=== PATIENT | female | born 1965 | race Caucasian/White ===

== ENCOUNTER 2022-04-30 15:44 | Day surgery (SDC) | payer MEDICARE ==
[2022-04-30] MEDS ORDERED: XYLOCAINE-MPF 1% 5ML SDV IJ ONE (15:45)
[2022-04-30] MEDS ORDERED: Marcaine Mpf 0.5% Vial 30 Ml IJ ONE (15:45)
[2022-04-30] MEDS ORDERED: Depo-Medrol 40 MG/ML IM ONE (15:45)
--- NOTE | 2022-05-01 07:39 | XRAY ---
Indication: Bilateral L4-S1 MBB. Intraoperative fluoroscopy provided for 17 seconds. Single digital spot image submitted for interpretation demonstrates posterior needle tips projecting over the expected left and right L4-S1 nerve roots. Correlate with intraoperative findings/report. Incidental L3/L4 kyphoplasty.
--- NOTE | 2022-05-01 22:06 | XRAY ---
17 seconds of fluoroscopy was used in surgery for a bilateral L4-S1 MBB.
== END 2022-04-30 18:10 | disposition home or self-care (01) ==
LOC: SDC-PAIN 15:44
PROVIDERS: ATTEND Psychiatry & Neurology Pain Medicine
DX: M47.816 Spondylosis without myelopathy or radiculopathy, lumbar region (principal); Z79.899 Other long term (current) drug therapy
CPT/HCPCS: 64493; 64494; 72020; 77002; J1030

== ENCOUNTER 2022-05-14 08:17 | Day surgery (SDC) | payer MEDICARE ==
[2022-05-14] MEDS ORDERED: LIDOCAINE HCL 1% 50 MG/5 ML VL PF IJ ONE (08:18)
[2022-05-14] MEDS ORDERED: Depo-Medrol 40 MG/ML IM ONE (08:18)
[2022-05-14] MEDS ORDERED: BUPIVACAINE 0.5% VIAL IJ ONE (08:18)
--- NOTE | 2022-05-14 12:11 | XRAY ---
Indication: Bilateral L4-S1 MBB. Intraoperative fluoroscopy provided for 23 seconds. Single digital spot image submitted for interpretation demonstrates posterior needle tips projecting over the expected left and right L4-S1 nerve roots. Correlate with intraoperative findings/report. Incidental L3/L4 kyphoplasty.
--- NOTE | 2022-05-14 12:25 | XRAY ---
23 seconds of fluoroscopy was used in surgery for a bilateral L4-S1 MBB.
== END 2022-05-14 09:52 | disposition home or self-care (01) ==
LOC: SDC-PAIN 08:17
PROVIDERS: ATTEND Psychiatry & Neurology Pain Medicine
DX: M47.816 Spondylosis without myelopathy or radiculopathy, lumbar region (principal); Z79.899 Other long term (current) drug therapy
CPT/HCPCS: 64493; 64494; 72020; 77002; J1030; J2001

== ENCOUNTER 2022-07-02 15:53 | Day surgery (SDC) | payer MEDICARE ==
[2022-07-02] MEDS ORDERED: Depo-Medrol 40 MG/ML IM ONE (15:54)
[2022-07-02] MEDS ORDERED: Xylocaine 1% Vial 30 ML PF IJ ONE (15:54)
[2022-07-02] MEDS ORDERED: BUPIVACAINE 0.5% VIAL IJ ONE (15:54)
--- NOTE | 2022-07-02 19:38 | XRAY ---
Indication: Right L4-S1 RFA. Intraoperative fluoroscopy provided for 24 seconds. 4 digital spot submitted for interpretation demonstrates posterior needle tips projecting over the expected right L4-S1 nerve roots. Correlate with intraoperative findings/report.
--- NOTE | 2022-07-03 19:54 | XRAY ---
24 seconds of fluoroscopy was used in surgery for right L4-S1 RFA.
== END 2022-07-02 19:10 | disposition home or self-care (01) ==
LOC: SDC-PAIN 15:53
PROVIDERS: ATTEND Psychiatry & Neurology Pain Medicine
DX: M47.816 Spondylosis without myelopathy or radiculopathy, lumbar region (principal); Z79.899 Other long term (current) drug therapy
CPT/HCPCS: 64635; 64636; 72100; 77002; J1030; J2001

== ENCOUNTER 2022-07-09 16:06 | Day surgery (SDC) | payer MEDICARE ==
[2022-07-09] MEDS ORDERED: XYLOCAINE-MPF 1% 5ML SDV IJ ONE (16:07)
[2022-07-09] MEDS ORDERED: BUPIVACAINE 0.5% VIAL IJ ONE (16:07)
[2022-07-09] MEDS ORDERED: Depo-Medrol 40 MG/ML IM ONE (16:07)
[2022-07-09] MEDS ORDERED: Lactated Ringers 1,000 ML IV ONE (18:37)
--- NOTE | 2022-07-09 20:22 | XRAY ---
Indication: Left L4-S1 RFA. Intraoperative fluoroscopy provided for 31 seconds. 3 digital spot images submitted for interpretation demonstrates posterior needle tips projecting over the expected left L4-S1 nerve roots. Correlate with intraoperative findings/report. Incidental L3/L4 kyphoplasty.
--- NOTE | 2022-07-10 09:13 | XRAY ---
31 seconds of fluoroscopy was used in surgery for a left L4-S1 RFA.
== END 2022-07-09 18:45 | disposition home or self-care (01) ==
LOC: SDC-PAIN 16:06
PROVIDERS: ATTEND Psychiatry & Neurology Pain Medicine
DX: M47.816 Spondylosis without myelopathy or radiculopathy, lumbar region (principal); Z79.899 Other long term (current) drug therapy
CPT/HCPCS: 64635; 64636; 72100; 77002; J1030

== ENCOUNTER 2023-05-20 16:13 | Day surgery (SDC) | payer MEDICARE ==
[2023-05-20] MEDS ORDERED: LIDOCAINE HCL 1% 50 MG/5 ML VL PF IJ ONE (16:14)
[2023-05-20] MEDS ORDERED: Depo-Medrol 40 MG/ML IM ONE (16:14)
[2023-05-20] MEDS ORDERED: BUPIVACAINE 0.5% VIAL IJ ONE (16:14)
--- NOTE | 2023-05-20 20:47 | XRAY ---
Indication: Right hip and right greater trochanter bursa injection. Intraoperative fluoroscopy provided for 48 seconds. 3 digital spot image submitted for interpretation demonstrates needle tip projecting lateral to right femur neck. Second needle tip lateral to right greater trochanter. Small amount of contrast injected for both needle tip placement. Correlate with intraoperative findings/report.
--- NOTE | 2023-05-21 08:45 | XRAY ---
48 seconds of fluoroscopy was used in surgery for a right intra-articular hip and right greater trochanteric bursa injection.
== END 2023-05-20 19:05 | disposition home or self-care (01) ==
LOC: SDC-PAIN 16:13
PROVIDERS: ATTEND Psychiatry & Neurology Pain Medicine
DX: M16.11 Unilateral primary osteoarthritis, right hip (principal); M70.61 Trochanteric bursitis, right hip; Z79.899 Other long term (current) drug therapy
CPT/HCPCS: 20610; 73502; 77002; J1030; J2001; Q9966

== ENCOUNTER → 2023-07-22 | Day surgery (SDC) | payer MEDICARE ==
[~2023-07-22] MED LIST: BUPIVACAINE 0.5% VIAL IJ ONE; Depo-Medrol 40 MG/ML IM ONE; XYLOCAINE-MPF 1% 5ML SDV IJ ONE
--- NOTE | 2023-07-22 19:48 | XRAY ---
Indication: Left hip and greater trochanter bursa injection. Intraoperative fluoroscopy provided for 25 seconds. 5 digital spot image submitted for interpretation demonstrates needle tip projecting lateral to left femur neck. Second needle tip lateral to greater trochanter. Small amount of contrast injected for both needle tip placement. Correlate with intraoperative findings/report.
--- NOTE | 2023-07-22 19:53 | XRAY ---
25 seconds of fluoroscopy was used in surgery for a left intra-articular hip and left greater trochanteric bursa injection.
== END ==
LOC: SDC-PAIN 15:02
PROVIDERS: ATTEND Psychiatry & Neurology Pain Medicine
DX: M16.12 Unilateral primary osteoarthritis, left hip (principal)
CPT/HCPCS: 20610; 73502; 77002; J1030; Q9966

== ENCOUNTER 2024-04-14 14:56 | Day surgery (SDC) | payer MEDICARE ==
[2024-04-14] MEDS ORDERED: LIDOCAINE HCL 1% 50 MG/5 ML VL PF IJ ONE (14:57)
[2024-04-14] MEDS ORDERED: Decadron 4 MG INJ IV ONE (14:57)
[2024-04-14] MEDS ORDERED: Xylocaine-Mpf 2% 5 Ml Vial IJ ONE (14:57)
[2024-04-14] MEDS ORDERED: BUPIVACAINE 0.5% VIAL IJ ONE (14:57)
[2024-04-14] MEDS ORDERED: Lactated Ringers 1,000 ML IV ONE (16:39)
--- NOTE | 2024-04-14 20:36 | XRAY ---
Indication: Right C2-C4 MBB. Intraoperative fluoroscopy provided for 17 seconds. 2 digital spot image submitted for interpretation demonstrates posterior needle tips projecting over the expected right C2-C4 nerve roots. Correlate with intraoperative findings/report.
--- NOTE | 2024-04-18 12:50 | XRAY ---
17 seconds of fluoroscopy was used in surgery for a right C2-C4 MBB.
== END 2024-04-14 15:42 | disposition home or self-care (01) ==
LOC: SDC-PAIN 14:56
PROVIDERS: ATTEND Psychiatry & Neurology Pain Medicine
DX: M47.812 Spondylosis without myelopathy or radiculopathy, cervical region (principal)
CPT/HCPCS: 64490; 64491; 72040; 77002; J1100; J2001; Q9966

== ENCOUNTER 2024-05-11 06:32 | Day surgery (SDC) | payer MEDICARE ==
[2024-05-11] MEDS ORDERED: LIDOCAINE HCL 1% AMPUL 5 ML IJ ONE (06:33)
[2024-05-11] MEDS ORDERED: BUPIVACAINE 0.5% VIAL IJ ONE (06:33)
[2024-05-11] MEDS ORDERED: Decadron 4 MG INJ IV ONE (06:33)
--- NOTE | 2024-05-11 09:00 | XRAY ---
Indication: Right C2-C4 MBB. Interpretive fluoroscopy provided for 12 seconds. 2 digital spot image submitted for interpretation demonstrates posterior needle tips projecting over the expected right C2-C4 nerve roots. Correlate with intraoperative findings/report.
[2024-05-11] MEDS ORDERED: Lactated Ringers 1,000 ML IV ONE (09:39)
--- NOTE | 2024-05-11 13:01 | XRAY ---
12 seconds of fluoroscopy was used in surgery for a right C2-C4 MBB.
== END 2024-05-11 08:30 | disposition home or self-care (01) ==
LOC: SDC-PAIN 06:32
PROVIDERS: ATTEND Psychiatry & Neurology Pain Medicine
DX: M47.812 Spondylosis without myelopathy or radiculopathy, cervical region (principal)
CPT/HCPCS: 64490; 64491; 72040; 77002; J1100

== ENCOUNTER 2024-06-08 15:33 | Day surgery (SDC) | payer MEDICARE ==
[2024-06-08] MEDS ORDERED: LIDOCAINE HCL 1% AMPUL 5 ML IJ ONE (15:34)
[2024-06-08] MEDS ORDERED: Xylocaine-Mpf 2% 5 Ml Vial IJ ONE (15:34)
[2024-06-08] MEDS ORDERED: Decadron 4 MG INJ IV ONE (15:34)
--- NOTE | 2024-06-08 18:34 | XRAY ---
Indication: Left C2-C4 MBB. Intraoperative fluoroscopy provided for 19 seconds. 2 digital spot images submitted for interpretation demonstrates posterior needle tips projecting over expected left C2-C4 nerve roots. Correlate with intraoperative findings/report.
--- NOTE | 2024-06-09 08:50 | XRAY ---
19 seconds of fluoroscopy was used in surgery for a left C2-C4 MBB.
== END 2024-06-08 18:08 | disposition home or self-care (01) ==
LOC: SDC-PAIN 15:33
PROVIDERS: ATTEND Psychiatry & Neurology Pain Medicine
DX: M47.812 Spondylosis without myelopathy or radiculopathy, cervical region (principal)
CPT/HCPCS: 72040; 77002; J1100

== ENCOUNTER 2024-07-13 15:05 | Day surgery (SDC) | payer MEDICARE ==
[2024-07-13] MEDS ORDERED: Decadron 4 MG INJ IV ONE (15:06)
[2024-07-13] MEDS ORDERED: BUPIVACAINE 0.5% VIAL IJ ONE (15:06)
[2024-07-13] MEDS ORDERED: LIDOCAINE HCL 1% AMPUL 5 ML IJ ONE (15:06)
--- NOTE | 2024-07-13 19:29 | XRAY ---
Indication: Left C2-C4 MBB. Intraoperative fluoroscopy provided for 18 seconds. 2 digital spot images submitted for interpretation demonstrates posterior needle tips projecting over expected left C2-C4 nerve roots. Correlate with intraoperative findings/report.
--- NOTE | 2024-07-13 19:35 | XRAY ---
18 seconds of fluoroscopy used in surgery for a left C2-C4 MBB.
== END 2024-07-13 16:56 ==
LOC: SDC-PAIN 15:05
PROVIDERS: ATTEND Psychiatry & Neurology Pain Medicine
DX: M47.812 Spondylosis without myelopathy or radiculopathy, cervical region (principal)
CPT/HCPCS: 64490; 64491; 72040; 77002; J1100

== ENCOUNTER 2024-08-10 14:32 | Day surgery (SDC) | payer MEDICARE ==
--- NOTE | 2024-08-10 19:51 | XRAY ---
Indication: Right C2-C4 RFA. Intraoperative fluoroscopy provided for 22 seconds. 3 digital spot images submitted for interpretation demonstrates posterior needle tips projecting over right C2-C4 nerve roots. Correlate with intraoperative findings/report.
--- NOTE | 2024-08-10 19:55 | XRAY ---
22 seconds of fluoroscopy used in surgery for a right C2-C4 RFA.
== END 2024-08-10 16:40 | disposition home or self-care (01) ==
LOC: SDC-PAIN 14:32
PROVIDERS: ATTEND Psychiatry & Neurology Pain Medicine
DX: M47.812 Spondylosis without myelopathy or radiculopathy, cervical region (principal)
CPT/HCPCS: 64633; 64634; 72040; 77002

== ENCOUNTER 2024-08-11 06:40 | Day surgery (SDC) | payer MEDICARE ==
[2024-08-11] MEDS ORDERED: LIDOCAINE HCL 1% 50 MG/5 ML VL IJ ONE (06:41)
[2024-08-11] MEDS ORDERED: BUPIVACAINE 0.5% VIAL IJ ONE (06:41)
[2024-08-11] MEDS ORDERED: dexAMETHasone sodium phosphate IJ ONE (06:41)
--- NOTE | 2024-08-11 10:11 | XRAY ---
Indication: Left C2-C4 RFA. Intraoperative fluoroscopy provided for 23 seconds. 2 digital spot image submitted for interpretation demonstrates posterior needle tips projecting over the expected left C2-C4 nerve roots. Correlate with intraoperative findings/report.
--- NOTE | 2024-08-11 10:13 | XRAY ---
23 seconds of fluoroscopy was used in surgery for a left C2-C4 RFA.
== END 2024-08-11 08:48 | disposition home or self-care (01) ==
LOC: SDC-PAIN 06:40
PROVIDERS: ATTEND Psychiatry & Neurology Pain Medicine
DX: M47.812 Spondylosis without myelopathy or radiculopathy, cervical region (principal)
CPT/HCPCS: 64633; 64634; 72040; 77002; J1100

== ENCOUNTER 2025-03-01 15:32 | Day surgery (SDC) | payer MEDICARE ==
[2025-03-01] MEDS ORDERED: Depo-Medrol 40 MG/ML IM ONE (15:33)
[2025-03-01] MEDS ORDERED: LIDOCAINE HCL 1% 50 MG/5 ML VL IJ ONE (15:33)
[2025-03-01] MEDS ORDERED: LIDOCAINE HCL 2% 100 MG/5 ML IJ ONE (15:33)
[2025-03-01] MEDS ORDERED: Lactated Ringers 1,000 ML IV ONE (16:35)
--- NOTE | 2025-03-01 19:35 | XRAY ---
Indication: Bilateral L4-S1 MBB. Intraoperative fluoroscopy provided for 23 seconds. Single digital spot image submitted for interpretation demonstrates posterior needle tips projecting over expected left and right L4-S1 nerve roots. Correlate with intraoperative findings/report. Incidental L3/L4 kyphoplasty.
--- NOTE | 2025-03-01 19:39 | XRAY ---
23 seconds of fluoroscopy were used in surgery for a bilateral L4-S1 MBB.
== END 2025-03-01 17:33 | disposition home or self-care (01) ==
LOC: SDC-PAIN 15:32
PROVIDERS: ATTEND Psychiatry & Neurology Pain Medicine
DX: M47.817 Spondylosis without myelopathy or radiculopathy, lumbosacral region (principal)

== ENCOUNTER 2025-04-19 15:47 | Day surgery (SDC) | payer MEDICARE, OTHER ==
[2025-04-19] MEDS ORDERED: methylPREDNISolone acetate IM ONE (15:48)
[2025-04-19] MEDS ORDERED: BUPIVACAINE 0.5% VIAL IJ ONE (15:48)
[2025-04-19] MEDS ORDERED: LIDOCAINE HCL 1% 50 MG/5 ML VL IJ ONE (15:48)
[2025-04-19] MEDS ORDERED: Lactated Ringers 1,000 ML IV ONE (16:23)
--- NOTE | 2025-04-19 19:21 | XRAY ---
Indication: Left L4-S1 RFA. Intraoperative fluoroscopy provided for 33 seconds. 3 digital spot image submitted for interpretation demonstrates posterior needle tips projecting over expected left L4-S1 nerve roots. Correlate with intraoperative findings/report. Incidental L3/L4 kyphoplasty
--- NOTE | 2025-04-20 18:23 | XRAY ---
33 seconds of fluoroscopy was used in surgery for a left L4-S1 RFA.
== END 2025-04-19 17:35 | disposition home or self-care (01) ==
LOC: SDC-PAIN 15:47
PROVIDERS: ATTEND Psychiatry & Neurology Pain Medicine
DX: M47.817 Spondylosis without myelopathy or radiculopathy, lumbosacral region (principal)